=== PATIENT | male | born 1995 | race Two or more races ===

== ENCOUNTER → 2024-11-14 | Emergency (ER) | payer OTHER ==
[~2024-11-14] VITALS: Ht 185.4 cm; Wt 81.6 kg
[~2024-11-14] MED LIST: HORIZANT600 MG PO; KETOROLAC TROMETHAMINE 60 MG VIAL IM ONE; KETOROLAC TROMETHAMINE 60 MG VIAL IM STA; LOSARTAN POTASS50 MG PO; ORENCIA125 MG/1 M SQ
[2024-11-14 15:46] LABS: URINE APPEARANCE Cloudy; URINE BILIRRUBIN Negative (NEGATIVE); URINE BLOOD Negative; URINE COLOR Yellow; URINE GLUCOSE Negative (NEGATIVE); URINE KETONE Trace (NEGATIVE); URINE LEUKOCYTE Negative; URINE NITRATE Negative; URINE PROTEIN Negative (NEGATIVE)
[2024-11-14 15:50] LABS: URINE BACTERIA 35.4 uL (0.0-1933); URINE EPITHELIAL CELLS 9.3 uL (0.0-38.8); URINE RBC 2.3 uL (0.0-20.8); URINE WBC 4.4 uL (0.0-23.2)
== END | disposition home or self-care (01) ==
LOC: ER 13:30
PROVIDERS: General Practice
DX: N50.812 Left testicular pain (principal); I86.1 Scrotal varices